=== PATIENT | female | born 1960 | race Caucasian/White ===

== ENCOUNTER → 2017-03-22 | Outpatient (CLI) | payer OTHER ==
[~2017-03-22] VITALS: Ht 177.8 cm; Wt 109.8 kg
[~2017-03-22] MED LIST: AMIT24CA5 PO; GABA-282 PO; LIDOCAINE 2% INJ 100 MG/5 ML SDV (FOR ANES.) As Ordered ONE; LIPI20TA PO; METO50TA2 PO; NEXI40CA PO; NS 1,000 ML IV ONE; PROPOFOL 500 MG/50 ML VIAL As Ordered ONE; PROZ20CA11 PO; REST30CA PO; RISP2TAB3 PO; XARE10TA PO
--- NOTE | 2017-03-22 12:16 | ROOR ---
Patient Name: Alsehia Hall Procedure Date: 03/22/2017 11:52 AM Date of : 1960 Age: 57 Room: [facility] [place] Gender: Female Note Status: Finalized Procedure: Colonoscopy Indications: High risk colon cancer surveillance: Personal history of colonic polyps, Last colonoscopy: January 2014 Providers: Freddy CHIN MD Referring MD: Gennaro Chavira Md, GIANFRANCO MEDEL MD Requesting Provider: Medicines: Monitored Anesthesia Care Complications: No immediate complications. Procedure: Pre-Anesthesia Assessment: - The heart rate, respiratory rate, oxygen saturations, blood pressure, adequacy of pulmonary ventilation, and response to care were monitored throughout the procedure. The Colonoscope was introduced through the anus and advanced to the cecum, identified by appendiceal orifice and ileocecal valve. The colonoscopy was performed without difficulty. The patient tolerated the procedure well. The quality of the bowel preparation was good. Findings: The perianal and digital rectal examinations were normal. (Exam: Complete, Prep: Good or Excellent.) A diminutive polyp was found in the descending colon. The polyp was sessile. The polyp was removed with a cold snare. Resection and retrieval were complete. Multiple medium-mouthed diverticula were found in the sigmoid colon. The exam was otherwise without abnormality on direct and retroflexion views. Impression: - One diminutive polyp in the descending colon, removed with a cold snare. Resected and retrieved. - Moderate diverticulosis in the sigmoid colon. - The examination was otherwise normal on direct and retroflexion views. Recommendation: - Repeat colonoscopy in 5 years for surveillance based on personal history of previous adenomatous polyps. Freddy Chin MD Freddy CHIN MD 03/22/2017 12:15:36 PM This report has been signed electronically. Number of Addenda: 0 Note Initiated On: 03/22/2017 11:52 AM Estimated Blood Loss: Estimated blood loss: none.
[2017-03-22 12:30] VITALS: BP 152/69
== END | disposition home or self-care (01) ==
LOC: M OPP 10:50
PROVIDERS: ATTEND Internal Medicine Gastroenterology
DX: Z12.11 Encounter for screening for malignant neoplasm of colon (principal); D12.4 Benign neoplasm of descending colon; K57.30 Diverticulosis of large intestine without perforation or abscess without bleeding; Z86.010 Personal history of colon polyps; I10 Essential (primary) hypertension; E78.5 Hyperlipidemia, unspecified; Z85.07 Personal history of malignant neoplasm of pancreas; R73.03 Prediabetes; F31.9 Bipolar disorder, unspecified; M32.9 Systemic lupus erythematosus, unspecified; G40.909 Epilepsy, unspecified, not intractable, without status epilepticus; Z86.718 Personal history of other venous thrombosis and embolism; R06.83 Snoring; Z91.018 Allergy to other foods; Z88.3 Allergy status to other anti-infective agents; Z88.0 Allergy status to penicillin; Z88.2 Allergy status to sulfonamides; Z88.1 Allergy status to other antibiotic agents; Z79.899 Other long term (current) drug therapy; Z79.01 Long term (current) use of anticoagulants

== ENCOUNTER → 2019-02-12 | Outpatient (REF) | payer OTHER ==
[~2019-02-12] MED LIST changes: -AMIT24CA5 PO; +AMIT24CA7 PO; -GABA-282 PO; +GABA-843 PO; -LIDOCAINE 2% INJ 100 MG/5 ML SDV (FOR ANES.) As Ordered ONE; -METO50TA2 PO; +METO50TA7 PO; -NS 1,000 ML IV ONE; -PROPOFOL 500 MG/50 ML VIAL As Ordered ONE
[2019-02-12 14:22] LABS: BASO % 0.4 % (0.0-1.0); EOS # 0.1 10^3/uL (0.0-0.50); EOS % 1.3 % (0.0-3.0); HEMOGLOBIN 12.4 g/dl (12.0-15.5); LYMPH # 2.9 10^3/uL (1.5-4.5); LYMPH % 30.6 % (24.0-44.0); MEAN CORPUSCULAR HEMOGLOBIN 30.2 pg (27.0-33.0); MEAN CORPUSCULAR HGB CONC 32.6 g/dl (32.0-36.5); MEAN CORPUSCULAR VOLUME 92.5 fl (80.0-96.0); MONO # 1.1 10^3/uL (0.0-0.8); MONO % 11.7 % (0.0-5.0); NEUTROPHILS # 5.3 10^3/uL (1.8-7.7); NEUTROPHILS % 55.8 % (36.0-66.0); PLATELET COUNT, AUTOMATED 455 10^3/uL (150-450); RED BLOOD COUNT 4.11 10^6/uL (4.00-5.40); WHITE BLOOD COUNT 9.5 10^3/uL (4.0-10.0)
[2019-02-12 14:46] LABS: ERYTHROCYTE SEDIMENTATION RATE 34 mm/hr (0-30)
[2019-02-12 14:52] LABS: ALBUMIN 3.5 GM/DL (3.2-5.2); ALT/SGPT 21 U/L (12-78); BILIRUBIN,TOTAL 0.2 MG/DL (0.2-1.0); BLOOD UREA NITROGEN 25 MG/DL (7-18); CALCIUM LEVEL 9.8 MG/DL (8.5-10.1); CARBON DIOXIDE LEVEL 23 MEQ/L (21-32); CHLORIDE LEVEL 109 MEQ/L (98-107); CREATININE FOR GFR 0.87 MG/DL (0.55-1.30); GLOMERULAR FILTRATION RATE > 60.0 (>51); GLUCOSE, FASTING 96 MG/DL (70-100); POTASSIUM SERUM 4.9 MEQ/L (3.5-5.1); RHEUMATOID FACTOR QUANT < 10.0 IU/ML (<15.0); SODIUM LEVEL 137 MEQ/L (136-145); TOTAL PROTEIN 7.5 GM/DL (6.4-8.2)
[2019-02-12 14:53] LABS: TOTAL 25(OH) VITAMIN D 49.7 NG/ML (30.0-100.0); VITAMIN B12 LEVEL > 2000 PG/ML
[2019-02-12 14:54] LABS: FOLATE > 24.0 NG/ML; HEMOGLOBIN A1c 6.3 %
[2019-02-13 10:32] LABS: PTT LUPUS TYPE ANTICOAG SCREEN 1.2 (0-1.2)
[2019-02-13 10:37] LABS: DRVV CONFIRM 41.1 SEC; LUPUS CONFIRM RATIO 1.1
[2019-02-13 10:39] LABS: NORMALIZED RATIO 1.09 (0.00-1.20)
[2019-02-18 00:07] LABS: ANCA-ATYPICAL <1:20 titer (Neg:<1:20); ANTI DOUBLE STRAND-DNA AB 3 IU/mL (0-9); ANTINUCLEAR ANTIBODIES DIRECT Negative (Negative); CERULOPLASMIN 35.8 mg/dL (19.0-39.0); COPPER PLASMA 132 ug/dL (72-166); CYTOPLASMIC NEUTROP AB ANCA-C <1:20 titer (Neg:<1:20); LEAD BLOOD ADULT 2 ug/dL (0-4); MERCURY LEVEL None Detected ug/L (0.0-14.9); PERINUCLEAR AB ANCA-P <1:20 titer (Neg:<1:20); SJOGREN'S ANTI SS-A <0.2 AI (0.0-0.9); SJOGREN'S ANTI SS-B <0.2 AI (0.0-0.9); VITAMIN B1 LEVEL WHOLE BLOOD 121.7 nmol/L (66.5-200.0); VITAMIN B6,PYRIDOXAL PHOSPHATE 11.7 ug/L (2.0-32.8); VITAMIN E(ALPHA TOCOPHEROL) 9.5 mg/L (7.0-25.1); VITAMIN E(GAMMA TOCOPHEROL) 0.5 mg/L (0.5-5.5)
== END ==
LOC: M LABNEURO 09:56
PROVIDERS: ATTEND Psychiatry & Neurology Neurology
DX: F31.9 Bipolar disorder, unspecified (principal)

== ENCOUNTER → 2019-07-22 | Outpatient (CLI) | payer OTHER ==
[~2019-07-22] MED LIST changes: +ALL10TAB29 PO; +FLON1SPR; +LIDOCAINE 1% MDV 20ML VIAL As Ordered ONE; +METF850T4 PO; +PANT40TA3 PO
[2019-07-22 11:31] VITALS: BP 133/74
--- NOTE | 2019-07-22 16:51 | REP ---
ULTRASOUND-GUIDED LEFT KIDNEY BIOPSY The procedure was performed under the direct supervision of Dr. Cruz. The patient has a history of a 2.8 x 2.7 x 2.6 cm solid mass inferiorly and laterally in the left kidney seen on a previous ultrasound dated 04/01/2019 from [place]. The risks and benefits of the procedure were explained to the patient and informed consent was obtained. The left kidney mass was localized using ultrasound guidance. The skin was prepped and draped in a sterile fashion. 1% lidocaine was used as a local anesthetic. Using ultrasound guidance a 17/18 gauge coaxial needle biopsy system was inserted and advanced into the mass. Five core biopsy samples were obtained and sent to lab. The patient tolerated the procedure well and there were no immediate complications. After the appropriate amount of monitored convalescence the patient was discharged from the department. Reviewed by ALTA Wood 07/22/2019 12:38 P Electronically Signed by Maicol Cruz MD 07/22/2019 04:42 P
== END ==
LOC: M IRPRO 08:05
DX: D41.02 Neoplasm of uncertain behavior of left kidney (principal)

== ENCOUNTER → 2019-12-25 | Outpatient (CLI) | payer OTHER ==
[~2019-12-25] MED LIST changes: +GASTROGRAFIN SOLUTION 30ML (Q9963) As Ordered ONE; -LIDOCAINE 1% MDV 20ML VIAL As Ordered ONE; +METF-839 PO; +MULTCAP PO; +READI-CAT 2 As Ordered ONE
--- NOTE | 2019-12-25 16:26 | REP ---
Clinical: Pancreatic carcinoma. Technique: Axial noncontrast images from the thoracic inlet to the upper abdomen with coronal and sagittal re-formations. Comparison: None. Findings: Innumerable scattered noncalcified pulmonary nodules measuring up to 5 mm noted bilaterally and concerning for metastatic disease. No effusion. No consolidation. Small mediastinal and hilar lymph nodes measuring up to approximately 11 mm are nonspecific. Chronic appearing scarring at the lingula and lung bases. Incidental aberrant right subclavian artery noted. Thoracic aorta, pulmonary vasculature and heart/pericardium are otherwise relatively normal. No pericardial effusion. The musculoskeletal structures demonstrate scattered sclerotic foci throughout the vertebral bodies concerning for underlying osseous metastatic lesions. Impression: 1. Innumerable scattered noncalcified nodules throughout the bilateral lung leiva up to 5 mm. Small scattered sclerotic foci throughout the vertebral bodies. Findings are concerning for metastatic disease. Electronically Signed by Milind Peraza MD 12/25/2019 04:17 P
--- NOTE | 2019-12-25 16:42 | REP ---
Clinical: Pancreatic carcinoma. Technique: Axial images from the lung bases to the pubic symphysis using oral contrast material. Coronal and sagittal re-formations obtained. Comparison: 03/13/2019. 01/28/2008. Findings: Liver is unremarkable by noncontrast evaluation. 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 Bilateral adrenal glands are normal. Evidence of prior cholecystectomy. The right kidney demonstrates mild chronic perinephric stranding and hypo/hyperdense lesions suggesting simple and proteinaceous cysts measuring up to approximately 1.5 cm. The left kidney demonstrates mild chronic-appearing perinephric stranding along with suspected simple and hyperdense cysts as well as posterior lower pole exophytic solid-appearing mass measuring 3.2 cm and highly concerning for renal cell carcinoma. The enteric system is without obstruction or acute inflammatory process. Colonic diverticulosis noted without acute diverticulitis. Pelvis demonstrates normal bladder and evidence for prior hysterectomy. No pelvic fluid or ascites. No obvious intraperitoneal or retroperitoneal adenopathy. Abdominal aorta without aneurysm. The musculoskeletal structures demonstrate degenerative changes along with innumerable scattered small sclerotic lesions which appear essentially unchanged as compared to 2008, but osseous metastatic disease must still be considered as a possibility. Impression: 1. Simple and complex bilateral renal cysts along with highly suspicious presumed solid mass along the posterior aspect of the left kidney and renal cell carcinoma must be considered. 2. Diverticulosis without acute diverticulitis. 3. Postsurgical changes. 4. Suspicious small scattered sclerotic lesions throughout the vertebral bodies and to a lesser extent the pelvis which are similar to 2008 and may be chronic / burned out lesions although metastatic disease must be considered. 5. No ascites. No obvious adenopathy. No focal inflammatory stranding. Electronically Signed by Milind Peraza MD 12/25/2019 04:34 P
== END ==
LOC: M RAD 13:41
PROVIDERS: ATTEND Internal Medicine Hematology & Oncology
DX: C25.9 Malignant neoplasm of pancreas, unspecified (principal); Z86.711 Personal history of pulmonary embolism; R91.8 Other nonspecific abnormal finding of lung field; N28.1 Cyst of kidney, acquired; K57.90 Diverticulosis of intestine, part unspecified, without perforation or abscess without bleeding

== ENCOUNTER 2021-01-31 11:04 | Day surgery (SDC) | payer OTHER ==
[~2021-01-31] VITALS: Ht 177.8 cm; Wt 96.6 kg
[~2021-01-31 11:04] MED LIST changes: -ALL10TAB29 PO; +CETI-24 PO; +GABA-282 PO; -GABA-843 PO; -GASTROGRAFIN SOLUTION 30ML (Q9963) As Ordered ONE; +LIDOCAINE 2% 100MG/5ML SDV (FOR ANES.) As Ordered ONE; +METO1TAB7 PO; +NS 1,000 ML IV ONE; +PANT40TA29 PO; -PANT40TA3 PO; -READI-CAT 2 As Ordered ONE; +RISP-9 PO; -RISP2TAB3 PO; +propofoL 200 MG/20 ML VIAL As Ordered ONE
--- NOTE | 2021-01-31 12:59 | ROOR ---
Patient Name: Aleshia Hall Procedure Date: 01/31/2021 12:22 PM Date of : 1960 Age: 61 Room: [facility] Gender: Female Note Status: Finalized Procedure: Upper GI endoscopy Indications: Iron deficiency anemia Providers: Freddy MCCLAIN MD Referring MD: WAQAR SINGH MD Requesting Provider: Medicines: Monitored Anesthesia Care Complications: No immediate complications. Procedure: Pre-Anesthesia Assessment: - The heart rate, respiratory rate, oxygen saturations, blood pressure, adequacy of pulmonary ventilation, and response to care were monitored throughout the procedure. The Endoscope was introduced through the mouth, and advanced to the second part of duodenum. The upper GI endoscopy was accomplished without difficulty. The patient tolerated the procedure well. Findings: The esophagus was normal. Small hiatal hernia with otherwise normal stomach. The examined duodenum was normal. Biopsies for histology were taken with a cold forceps in the second portion of the duodenum and in the third portion of the duodenum for evaluation of celiac disease. Impression: - Normal esophagus. - Small Hiatal hernia with otherwise normal stomach. - Normal examined duodenum. - Biopsies were taken with a cold forceps for evaluation of celiac disease. Recommendation: - Await pathology results. - Perform a colonoscopy today. Procedure Code(s): --- Professional --- 20536, Esophagogastroduodenoscopy, flexible, transoral; with biopsy, single or multiple Diagnosis Code(s): --- Professional --- D50.9, Iron deficiency anemia, unspecified CPT copyright 2019 [employer]. All rights reserved. The codes documented in this report are preliminary and upon all purpose clerk review may be revised to meet current compliance requirements. Freddy Mcclain MD Freddy MCCLAIN MD 01/31/2021 12:59:01 PM Electronically signed by Freddy MCCLAIN MD Number of Addenda: 0 Note Initiated On: 01/31/2021 12:22 PM Estimated Blood Loss: Estimated blood loss: none.
--- NOTE | 2021-01-31 13:05 | ROOR ---
Patient Name: Aleshia Hall Procedure Date: 01/31/2021 12:23 PM Date of : 1960 Age: 61 Room: [facility] Gender: Female Note Status: Finalized Procedure: Colonoscopy Indications: Iron deficiency anemia Providers: Freddy CMCLAIN MD Referring MD: WAQAR SINGH MD Requesting Provider: Medicines: Monitored Anesthesia Care Complications: No immediate complications. Procedure: Pre-Anesthesia Assessment: - The heart rate, respiratory rate, oxygen saturations, blood pressure, adequacy of pulmonary ventilation, and response to care were monitored throughout the procedure. The was introduced through the anus and advanced to the terminal ileum, with identification of the appendiceal orifice and IC valve. The colonoscopy was somewhat difficult due to unsatisfactory bowel prep. Successful completion of the procedure was aided by lavage. The patient tolerated the procedure well. The quality of the bowel preparation was adequate and fair. Findings: The perianal and digital rectal examinations were normal. Multiple medium-mouthed diverticula were found in the sigmoid colon. The exam was otherwise normal throughout the examined colon. The terminal ileum appeared normal. Impression: - Preparation of the colon was fair. - Diverticulosis in the sigmoid colon. - Small internal hemorrhoids. - The colon is otherwise normal. - The examined portion of the ileum was normal. - No specimens collected. Recommendation: - Repeat colonoscopy in 3 years because the bowel preparation was suboptimal. Procedure Code(s): --- Professional --- 30046, Colonoscopy, flexible; diagnostic, including collection of specimen(s) by brushing or washing, when performed (separate procedure) Diagnosis Code(s): --- Professional --- K57.30, Diverticulosis of large intestine without perforation or abscess without bleeding D50.9, Iron deficiency anemia, unspecified CPT copyright 2019 [employer]. All rights reserved. The codes documented in this report are preliminary and upon heating and refrigeration inspector review may be revised to meet current compliance requirements. Freddy Mcclain MD Freddy MCCLAIN MD 01/31/2021 1:05:28 PM Electronically signed by Freddy MCCLAIN MD Number of Addenda: 0 Note Initiated On: 01/31/2021 12:23 PM Estimated Blood Loss: Estimated blood loss: none.
[2021-01-31 13:30] VITALS: BP 108/64
== END 2021-01-31 13:43 | disposition home or self-care (01) ==
LOC: M OPP 11:04
PROVIDERS: ATTEND Internal Medicine Gastroenterology
DX: K57.30 Diverticulosis of large intestine without perforation or abscess without bleeding (principal); K44.9 Diaphragmatic hernia without obstruction or gangrene; D50.9 Iron deficiency anemia, unspecified; Z79.84 Long term (current) use of oral hypoglycemic drugs; Z79.899 Other long term (current) drug therapy; Z88.0 Allergy status to penicillin; Z88.2 Allergy status to sulfonamides; Z88.1 Allergy status to other antibiotic agents; Z91.018 Allergy to other foods; Z91.041 Radiographic dye allergy status; Z86.79 Personal history of other diseases of the circulatory system

== ENCOUNTER → 2022-02-19 | Outpatient (CLI) | payer OTHER ==
[~2022-02-19] MED LIST changes: +LIDOCAINE 1% MDV 20ML VIAL As Ordered ONE; -LIDOCAINE 2% 100MG/5ML SDV (FOR ANES.) As Ordered ONE; -NS 1,000 ML IV ONE; -propofoL 200 MG/20 ML VIAL As Ordered ONE
[2022-02-19 13:43] VITALS: BP 150/50
== END ==
LOC: M IRPRO 10:32
PROVIDERS: ATTEND Physician Assistant
DX: C64.2 Malignant neoplasm of left kidney, except renal pelvis (principal)

== ENCOUNTER → 2022-05-28 | Outpatient (CLI) | payer OTHER ==
[~2022-05-28] MED LIST changes: -LIDOCAINE 1% MDV 20ML VIAL As Ordered ONE; +LUBI24CA; +MULT-90 PO
== END ==
LOC: M RAD 08:20
PROVIDERS: ATTEND Internal Medicine Medical Oncology
DX: D47.2 Monoclonal gammopathy (principal); M25.78 Osteophyte, vertebrae; M47.9 Spondylosis, unspecified

== ENCOUNTER 2024-12-03 08:16 | Day surgery (SDC) | payer OTHER ==
[~2024-12-03] VITALS: Ht 177.8 cm; Wt 81.6 kg
[~2024-12-03 08:16] MED LIST changes: +ATOR1TAB19 PO; +FLUO-365 PO; +GABA-1172 PO; -GABA-282 PO; -LUBI24CA; +LUBI24CA PO; +METO1TAB32 PO; +NS 250 ML IV ONE; +RISP-106 PO; -RISP-9 PO; +TEMA30CA PO
[2024-12-03] MEDS ORDERED: GLYCOPYRROLATE INJ 0.2 MG/ML 2 ML VIAL As Ordered ONE (09:51)
[2024-12-03] MEDS ORDERED: LIDOCAINE 2% 100MG/5ML SDV (FOR ANES.) As Ordered ONE (09:51)
[2024-12-03] MEDS ORDERED: propofoL 200 MG/20 ML VIAL As Ordered ONE (09:51)
[2024-12-03 10:45] VITALS: BP 156/84; O2SAT 98
== END 2024-12-03 10:49 | disposition home or self-care (01) ==
LOC: M OPP 08:16
PROVIDERS: ATTEND Internal Medicine Gastroenterology
DX: K57.30 Diverticulosis of large intestine without perforation or abscess without bleeding (principal); K64.8 Other hemorrhoids; Z86.0100 Personal history of colon polyps, unspecified; Z88.0 Allergy status to penicillin; Z88.1 Allergy status to other antibiotic agents; Z88.2 Allergy status to sulfonamides; Z91.018 Allergy to other foods; Z91.041 Radiographic dye allergy status; Z88.8 Allergy status to other drugs, medicaments and biological substances; Z79.84 Long term (current) use of oral hypoglycemic drugs; Z79.899 Other long term (current) drug therapy; L93.0 Discoid lupus erythematosus; R56.9 Unspecified convulsions; Z86.711 Personal history of pulmonary embolism
CPT/HCPCS: 45378; J1596